=== PATIENT | male | born 1955 | race Hispanic/Latino ===

== ENCOUNTER 2019-06-27 19:02 | Emergency (ER) | payer BC, MEDICARE ==
[~2019-06-27] VITALS: Ht 172.7 cm; Wt 83.5 kg
[2019-06-27 19:35] LABS: BASOPHILS # (AUTO) 0.1 (0.0-0.1); BASOPHILS % 0.8 % (0.0-1.0); EOSINOPHILS # (AUTO) 0.4 (0.0-0.4); EOSINOPHILS % 3.3 % (0.0-6.0); HEMATOCRIT 39.5 % (38.2-49.6); HEMOGLOBIN 13.3 g/dL (14.0-18.0); LYMPHOCYTES # (AUTO) 3.4 (1.0-3.2); LYMPHOCYTES % 30.7 % (18.0-39.1); MEAN CORPUSCULAR HEMOGLOBIN 28.2 pg (28-32); MEAN CORPUSCULAR HGB CONC 33.7 g/dL (31-35); MEAN CORPUSCULAR VOLUME 83.9 fL (81-99); MONOCYTES # (AUTO) 0.9 (0.2-0.8); MONOCYTES % 8.4 % (4.4-11.3); NEUTROPHILS # (AUTO) 6.2 (2.1-6.9); NEUTROPHILS % 56.5 % (38.7-80.0); PLATELET COUNT 279 x10e3/uL (140-360); RED BLOOD COUNT 4.71 x10e6/uL (4.3-5.7); RED CELL DISTRIBUTION WIDTH 14.4 % (11.7-14.4)
[2019-06-27 19:46] LABS: BILIRUBIN,URINE NEGATIVE (NEGATIVE); CLARITY,URINE CLEAR (CLEAR); COLOR,URINE COLORLESS (YELLOW); KETONES,URINE NEGATIVE (NEGATIVE); LEUKOCYTE ESTERASE ,URINE NEGATIVE (NEGATIVE); NITRITE,URINE NEGATIVE (NEGATIVE); PROTEIN,URINE DIPSTICK NEGATIVE (NEGATIVE); URINE UROBILINOGEN 0.2 mg/dL (0.2 - 1)
[2019-06-27 19:47] LABS: BACTERIA,URINE FEW /HPF; EPITHELIAL CELLS,URINE FEW /LPF; RBC,URINE 0-5 /HPF (0-5); WBC,URINE (MAN) 0-5 /HPF (0-5)
[2019-06-27 19:56] LABS: ALANINE AMINOTRANSFERASE 19 IU/L (0-55); ALBUMIN 3.7 g/dL (3.5-5.0); ALKALINE PHOSPHATASE 69 IU/L (40-150); ANION GAP 15.9 mmol/L (8-16); BLOOD UREA NITROGEN 12 mg/dL (7-26); BUN/CREATININE RATIO 19 (6-25); CALCIUM 9.1 mg/dL (8.4-10.2); CARBON DIOXIDE 22 mmol/L (22-29); CHLORIDE 104 mmol/L (98-107); CREATININE, SERUM 0.64 mg/dL (0.72-1.25); EST GLOMERULAR FILTRATION RATE > 60 ML/MIN (60-); GLUCOSE 177 mg/dL (74-118); POTASSIUM 3.9 mmol/L (3.5-5.1); SODIUM 138 mmol/L (136-145)
--- NOTE | 2019-06-27 20:22 | Diagnostic Imaging Report ---
Examination: CT head without contrast Clinical Indication: Dizziness; blurred vision. Technique: Transaxial noncontrast images from the skull base through the vertex were obtained. Sagittal and coronal reformatted images were done. Dose modulation, iterative reconstruction, and/or weight based adjustment of the mA/kV was utilized to reduce the radiation dose to as low as reasonably achievable. Comparison: None. Findings: Scalp: No abnormalities. Bones: Intact. No fractures. No blastic or lytic lesions. Brain sulci: Appropriate for patient's age. Ventricles: Normal in size and configuration. No hydrocephalus. Extra-axial space: No abnormalities. Parenchyma: There are subtle patchy areas of hypoattenuation in the periventricular and subcortical white matter, nonspecific. No masses, hemorrhage, or acute or chronic cortical based vascular insults. Suprasellar region: No abnormalities. Craniocervical junction: The foramen magnum is patent. No Chiari one malformation. Incidental findings: Atherosclerotic calcification of the cavernous and supraclinoid internal carotid and V4 segments of the bilateral vertebral arteries. Impression: No acute intracranial abnormality. Mild chronic microvascular ischemic change. Signed by: Dr. Lexii Downey M.D. on 06/27/2019 8:19 PM
[2019-06-27 20:29] LABS: CREATINE KINASE 90 IU/L (30-200)
[2019-06-27] MEDS ORDERED: IOPAMIDOL 370 MG/ML 200 ML INFUS..BTL INJ ONE (20:57)
[2019-06-27] MEDS ORDERED: SODIUM CHLORIDE 0.9% 50ML 50 ML ONE (20:57)
[2019-06-27 23:17] VITALS: BP 118/75
--- NOTE | 2019-06-28 12:31 | Diagnostic Imaging Report ---
Examination: Cervical and Intracranial CT Angiogram with Contrast History: Dizziness. Blurred vision. Comparison studies: No direct comparison. Head CT performed earlier today. Technique: Axial images were obtained from the thoracic inlet. Coronal and sagittal images reconstructed from the axial data. Intravenous contrast: 100 mL of Isovue 370. Degree of stenosis at the carotid bulbs, if present, will be calculated using NASCET criteria where the smallest diameter at the location of stenosis is compared to the diameter of the more distal non-diseased vessel lumen. Computer generated maximum intensity projection and 3D images of the cervical and intracranial anterior and posterior circulations were performed on a separate workstation. Dose modulation, iterative reconstruction, and/or weight based adjustment of the mA/kV was utilized to reduce the radiation dose to as low as reasonably achievable. Findings: CTA neck: Aortic arch and major vessels: Patent. Common carotid arteries: Patent Cervical carotid bifurcations: Right: Nonstenotic calcific plaque. Left :Nonstenotic calcific plaque with focal ulcerative plaque along the posteromedial margin. Internal carotid arteries: Right: Calcific plaque with mild stenosis (35%) for a length of 5mm, and approximately 1.3cm from the bifurcation. Left: Nonstenotic mixed calcific and soft plaque. Vertebral arteries: Patent bilateral V1-V3 segments. Nonstenotic punctate calcific plaque at the origin of the left vertebral artery. CTA head: Internal carotid arteries: Patent despite calcific plaque Anterior cerebral arteries: Patent left A1 and bilateral A2 segments. Absent right A1. Middle cerebral arteries: Patent bilateral M1 and M2 segments. Posterior cerebral arteries: Patent bilateral P1 and P2 segments. Vertebro-basilar system: Patent. Anatomical variants: Anterior communicating artery :Present Posterior communicating arteries: Patent on the right. Not visualized on the left. Vertebral arteries: Codominant. IMPRESSION: 1. Mild stenosis (35%) of the proximal cervical segment of the right internal carotid artery due to calcific plaque. 2. Nonstenotic calcific and mixed plaque as described above. Signed by: Dr. Lexii Downey M.D. on 06/27/2019 11:00 PM
== END 2019-06-27 23:26 | disposition home or self-care (01) ==
LOC: FSED 19:02 → ER 23:26
DX: R42 Dizziness and giddiness (principal)
CPT/HCPCS: 36415; 70450; 70496; 70498; 80053; 81001; 82550; 82553; 82948; 84484; 85025; 93005; 99284; Q9967

== ENCOUNTER 2019-12-09 17:17 | Emergency (ER) | payer MEDICARE, BC ==
[~2019-12-09] VITALS: Ht 172.7 cm; Wt 83.5 kg
--- NOTE | 2019-12-09 17:22 | Emergency Department Note ---
History of Present Illnes History of Present Illness Chief Complaint: Neurological History of Present Illness This is a 64 year old male with persistant bluriness of vision 2 days prior. Seen at bedside NAD Arrival Mode: Car Onset (how long ago): day(s) Radiation: Reports non-radiation Severity: mild Onset quality: gradual Duration (how long): day(s) Progression: unchanged Chronicity: new Context: Denies recent illness, Denies recent surgery, Denies recent immobilization, Denies recent travel, Denies trauma/injury, Denies new medications, Denies hx of DVT/PE, Denies non-compliance w/ medications, Denies other Relieving factors: none Exacerbating factors: none Associated symptoms: Denies denies other symptoms, Denies confusion, Denies chest pain, Denies cough, Denies diaphoresis, Denies fever/chills, Denies headaches, Denies loss of appetite, Denies malaise, Denies nausea/vomiting, Denies rash, Denies seizure, Denies shortness of breath, Denies syncope, Denies weakness, Denies other Treatments prior to arrival: none Past Medical/Family History Physician Review I have reviewed the patient's past medical and family history. Any updates have been documented here. Past Medical History Recent Fever: No Clinical Suspicion of Infectio: No New/Unexplained Change in Ment: No Past Medical History: Hypertension, Diabetes, TIA, UTI's, GERD, Hyperlipedemia Past Surgical History: Back Surgery Other Surgery: NECK SX CHEST TUBE INSERTION Social History Smoking Cessation: Never Smoker Alcohol Use: None Any Illegal Drug Use: No Other Last Tetanus: UTD Review of Systems Review of Systems Constitutional: Reports no symptoms EENTM: Reports no symptoms Cardiovascular: Reports no symptoms Respiratory: Reports no symptoms Gastrointestinal: Reports no symptoms Genitourinary: Reports no symptoms Musculoskeletal: Reports no symptoms Integumentary: Reports no symptoms Neurological: Reports other Psychological: Reports no symptoms Endocrine: Reports no symptoms Hematological/Lymphatic: Reports no symptoms Physical Exam Related Data Allergies: Coded Allergies: No Known Allergies (Verified , 12/09/19) Triage Vital Signs Vital Signs Date Time Temp Pulse Resp B/P (MAP) Pulse Ox O2 Delivery O2 Flow Rate FiO2 12/09/19 17:25 98.2 96 18 165/91 98 Room Air Vital signs reviewed: Yes Physical Exam CONSTITUTIONAL Constitutional: Present obese HENT HENT: Present normocephalic, Present atraumatic, Present oropharynx clear/moist, Present nose normal HENT L/R: Present left ext ear normal, Present right ext ear normal EYES Eyes: Reports PERRL, Reports conjunctivae normal NECK Neck: Present ROM normal PULMONARY Pulmonary: Present effort normal, Present breath sounds normal CARDIOVASCULAR Cardiovascular: Present regular rhythm, Present heart sounds normal, Present capillary refill normal, Present normal rate GASTROINTESTINAL Abdominal: Present soft, Present nontender, Present bowel sounds normal GENITOURINARY Genitourinary: Present exam deferred SKIN Skin: Present warm, Present dry MUSCULOSKELETAL Musculoskeletal: Present ROM normal NEUROLOGICAL Neurological: Present alert, Present oriented x 3, Present no gross motor or sensory deficits PSYCHOLOGICAL Psychological: Present mood/affect normal, Present judgement normal Results Laboratory Lab results reviewed: Yes Imaging Imaging results reviewed: Yes Impressions [place] [id number] Patient Name: JAMIE JACKSON MR #: [id number] : 1955 Age/Sex: 64/M Req #: [id number] Adm Physician: Ordered by: NAHED PICKETT DO Report #: [id number] Location: ER Room/Bed: Procedure: [id number] CT/CTA BRAIN Exam Date: 12/09/19 Exam Time: 1845 REPORT STATUS: Signed EXAMINATION: CT angio of the neck and head with contrast. HISTORY:Blurred vision, possible TIA COMPARISON:CT brain and CTA head and neck from 06/27/2019. TECHNIQUE: Multidetector helical axial images were acquired through the neck and head during infusion of iodinated contrast material. Images were reviewed in multiplanar and 3-dimensional format. Axial CT head without contrast in soft tissue and bone windows. Dose modulation, iterative reconstruction, and/or weight based adjustment of the mA/kV was utilized to reduce the radiation dose to as low as reasonably achievable. Contrast: 100 mL of Isovue-370. . FINDINGS: CT head: Skull/scalp: No lytic or blastic. lesions. No surgical changes. Parenchyma: Nonspecific few, scattered supratentorial white matter hypodensity are likely related to small vessel ischemic changes. No acute hemorrhage, mass or acute major vascular territorial infarct. Arteries: No density suggestive of thrombosis. Dural sinuses: No abnormal density suggestive of thrombosis. Ventricles: No hydrocephalus or displacement. Extra-axial spaces: No abnormal density. Brain volume: Mild generalized cerebral volume loss. Craniocervical junction: No mass, Chiari malformation, or basilar invagination. Sella: No mass. Paranasal/mastoid sinuses: Under pneumatization and partial sclerosis of right mastoid air cells possibly related to chronic inflammation. CTA: NECK: If carotid bulb stenosis is present, stenosis is measured with respect to the distal extracranial internal carotid artery. Aortic arch and major vessels: Multifocal scattered nonstenotic atherosclerotic calcification in the aortic arch and at the origin of the great vessels. Common carotid arteries: Multifocal hard and soft atherosclerotic plaque in right common carotid artery without significant vascular stenosis. Cervical carotid bifurcations: Right: Mild to moderate mixed atherosclerotic plaque in right carotid bulb without significant vascular stenosis. Left :Moderate mixed atherosclerotic plaque in left carotid bulb with unchanged focal ulcerative plaque along the posterior medial margin. Internal carotid arteries: Right: Hard atherosclerotic plaque in proximal cervical segment of right internal carotid artery just above the bifurcation results in approximately 25% vascular stenosis. Left: Hard atherosclerotic plaque in proximal cervical segment of left internal carotid artery just above the bifurcation without significant vascular stenosis. Vertebral arteries: Nonstenotic focal hard atherosclerotic plaque in V2 segment of right vertebral artery without significant vascular stenosis, at level C6. Nonstenotic focal hard atherosclerotic plaque at the origin of left vertebral artery. Incidental finding: Multiple missing teeth, multifocal dental caries and endodontal disease. Cervical spine: C5-C6: Mild degenerative disc disease. Moderate right foraminal stenosis due to facet and uncovertebral arthrosis. C6-C7: Mild bilateral foraminal stenosis due to facet and uncovertebral arthrosis. Expected postoperative changes from prior laminectomy that extends from level C4-C6. Nonspecific prominent bilateral lateral cervical lymph nodes. HEAD: Internal carotid arteries: Mild atherosclerotic plaque in bilateral carotid siphon. Hypoplastic right A1 segment, left A1 segment is patent without abnormality. A2 segments of the anterior cerebral artery is patent without abnormality. Bilateral middle cerebral arteries are patent without abnormality. 2 mm triangular projection that arises from the anterior communicating artery that projects inferiorly (image 88, series 511) may represent small focal aneurysm or infundibulum. Vertebral arteries: Patent. Basilar artery: Patent. Posterior cerebral arteries: Patent. origin of right posterior cerebral artery. Anatomical variants: Anterior communicating artery :Present Posterior communicating arteries: Patent on right, not visualized on left. Vertebral arteries: Codominant. IMPRESSION: CT head: No acute intracranial abnormality. Mild supratentorial white matter microvascular ischemic changes. Mild generalized cerebral volume loss. CTA head and neck: 1. No acute abnormality or significant change since CT of the head and neck from 06/27/2019. 2. Multifocal atherosclerotic plaque without significant vascular stenosis, particularly in the aortic arch, right common carotid artery, bilateral carotid bulb, cervical segment of bilateral internal carotid arteries, vertebral arteries and bilateral carotid siphon. 3. Unchanged ulcerative plaque in the posterior medial aspect of cervical segment of left internal carotid artery. 4. Persistent 2 mm infundibulum vs small focal aneurysm arising from the anterior communicating artery. Signed by: Dr. Charo Jiang M.D. on 12/09/2019 8:15 PM Dictated By: CHARO JIANG MD 14 Transcribed By: TAYLOR on 12/09/192014 COPY TO: NAHED PICKETT DO~ Procedures 12 Lead ECG Interpretation ECG Interpretation : ECG: ECG 1 Court Recorder: Interpreted by ED physician Date: Dec 09, 2019 Time: 17:24 Prior ECG tracings: reviewed Rhythm: sinus rhythm Rate: normal BPM: 77 QRS axis: normal ST segments normal: Yes T waves normal: Yes Clinical Impression: normal ECG Assessment & Plan Medical Decision Making MDM 64 yom presents with neuro symptoms . Diff Dx : status epilepticus, brain tumor, CVA, SAH, EDH, traumatic brain injury , hydrocephalus, meningitis, encephalitis, COVID-19 infection Assessment & Plan Final Impression: (1) Visual blurriness Depart Disposition: HOME, SELF-CARE NAHED PICKETT DO Dec 09, 2019 17:22
[2019-12-09 17:44] LABS: BASOPHILS # (AUTO) 0.1 (0.0-0.1); BASOPHILS % 0.6 % (0.0-1.0); EOSINOPHILS # (AUTO) 0.3 (0.0-0.4); EOSINOPHILS % 2.3 % (0.0-6.0); HEMATOCRIT 39.9 % (38.2-49.6); HEMOGLOBIN 13.4 g/dL (14.0-18.0); LYMPHOCYTES # (AUTO) 4.4 (1.0-3.2); LYMPHOCYTES % 38.2 % (18.0-39.1); MEAN CORPUSCULAR HEMOGLOBIN 27.3 pg (28-32); MEAN CORPUSCULAR HGB CONC 33.6 g/dL (31-35); MEAN CORPUSCULAR VOLUME 81.3 fL (81-99); MONOCYTES # (AUTO) 1.2 (0.2-0.8); MONOCYTES % 10.4 % (4.4-11.3); NEUTROPHILS # (AUTO) 5.6 (2.1-6.9); NEUTROPHILS % 48.2 % (38.7-80.0); PLATELET COUNT 285 x10e3/uL (140-360); RED BLOOD COUNT 4.91 x10e6/uL (4.3-5.7); RED CELL DISTRIBUTION WIDTH 13.5 % (11.7-14.4)
[2019-12-09 18:01] LABS: ALANINE AMINOTRANSFERASE 29 IU/L (0-55); ALBUMIN 3.7 g/dL (3.5-5.0); ALBUMIN/GLOBULIN RATIO 0.8 (0.8-2.0); ALKALINE PHOSPHATASE 71 IU/L (40-150); ANION GAP 15.2 mmol/L (8-16); BLOOD UREA NITROGEN 14 mg/dL (7-26); BUN/CREATININE RATIO 21 (6-25); CALCIUM 9.4 mg/dL (8.4-10.2); CARBON DIOXIDE 20 mmol/L (22-29); CHLORIDE 102 mmol/L (98-107); CREATININE, SERUM 0.67 mg/dL (0.72-1.25); EST GLOMERULAR FILTRATION RATE > 60 ML/MIN (60-); GLUCOSE 176 mg/dL (74-118); POTASSIUM 4.2 mmol/L (3.5-5.1); SODIUM 133 mmol/L (136-145)
--- NOTE | 2019-12-09 20:18 | Diagnostic Imaging Report ---
EXAMINATION: CT angio of the neck and head with contrast. HISTORY:Blurred vision, possible TIA COMPARISON:CT brain and CTA head and neck from 06/27/2019. TECHNIQUE: Multidetector helical axial images were acquired through the neck and head during infusion of iodinated contrast material. Images were reviewed in multiplanar and 3-dimensional format. Axial CT head without contrast in soft tissue and bone windows. Dose modulation, iterative reconstruction, and/or weight based adjustment of the mA/kV was utilized to reduce the radiation dose to as low as reasonably achievable. Contrast: 100 mL of Isovue-370. . FINDINGS: CT head: Skull/scalp: No lytic or blastic. lesions. No surgical changes. Parenchyma: Nonspecific few, scattered supratentorial white matter hypodensity are likely related to small vessel ischemic changes. No acute hemorrhage, mass or acute major vascular territorial infarct. Arteries: No density suggestive of thrombosis. Dural sinuses: No abnormal density suggestive of thrombosis. Ventricles: No hydrocephalus or displacement. Extra-axial spaces: No abnormal density. Brain volume: Mild generalized cerebral volume loss. Craniocervical junction: No mass, Chiari malformation, or basilar invagination. Sella: No mass. Paranasal/mastoid sinuses: Under pneumatization and partial sclerosis of right mastoid air cells possibly related to chronic inflammation. CTA: NECK: If carotid bulb stenosis is present, stenosis is measured with respect to the distal extracranial internal carotid artery. Aortic arch and major vessels: Multifocal scattered nonstenotic atherosclerotic calcification in the aortic arch and at the origin of the great vessels. Common carotid arteries: Multifocal hard and soft atherosclerotic plaque in right common carotid artery without significant vascular stenosis. Cervical carotid bifurcations: Right: Mild to moderate mixed atherosclerotic plaque in right carotid bulb without significant vascular stenosis. Left :Moderate mixed atherosclerotic plaque in left carotid bulb with unchanged focal ulcerative plaque along the posterior medial margin. Internal carotid arteries: Right: Hard atherosclerotic plaque in proximal cervical segment of right internal carotid artery just above the bifurcation results in approximately 25% vascular stenosis. Left: Hard atherosclerotic plaque in proximal cervical segment of left internal carotid artery just above the bifurcation without significant vascular stenosis. Vertebral arteries: Nonstenotic focal hard atherosclerotic plaque in V2 segment of right vertebral artery without significant vascular stenosis, at level C6. Nonstenotic focal hard atherosclerotic plaque at the origin of left vertebral artery. Incidental finding: Multiple missing teeth, multifocal dental caries and endodontal disease. Cervical spine: C5-C6: Mild degenerative disc disease. Moderate right foraminal stenosis due to facet and uncovertebral arthrosis. C6-C7: Mild bilateral foraminal stenosis due to facet and uncovertebral arthrosis. Expected postoperative changes from prior laminectomy that extends from level C4-C6. Nonspecific prominent bilateral lateral cervical lymph nodes. HEAD: Internal carotid arteries: Mild atherosclerotic plaque in bilateral carotid siphon. Hypoplastic right A1 segment, left A1 segment is patent without abnormality. A2 segments of the anterior cerebral artery is patent without abnormality. Bilateral middle cerebral arteries are patent without abnormality. 2 mm triangular projection that arises from the anterior communicating artery that projects inferiorly (image 88, series 511) may represent small focal aneurysm or infundibulum. Vertebral arteries: Patent. Basilar artery: Patent. Posterior cerebral arteries: Patent. origin of right posterior cerebral artery. Anatomical variants: Anterior communicating artery :Present Posterior communicating arteries: Patent on right, not visualized on left. Vertebral arteries: Codominant. IMPRESSION: CT head: No acute intracranial abnormality. Mild supratentorial white matter microvascular ischemic changes. Mild generalized cerebral volume loss. CTA head and neck: 1. No acute abnormality or significant change since CT of the head and neck from 06/27/2019. 2. Multifocal atherosclerotic plaque without significant vascular stenosis, particularly in the aortic arch, right common carotid artery, bilateral carotid bulb, cervical segment of bilateral internal carotid arteries, vertebral arteries and bilateral carotid siphon. 3. Unchanged ulcerative plaque in the posterior medial aspect of cervical segment of left internal carotid artery. 4. Persistent 2 mm infundibulum vs small focal aneurysm arising from the anterior communicating artery. Signed by: Dr. Charo Oneil M.D. on 12/09/2019 8:15 PM
[2019-12-09] MEDS ORDERED: ASPIRIN 325 MG TAB PO STA (20:27)
[2019-12-10] MEDS ORDERED: IOPAMIDOL 370 MG/ML 200 ML INFUS..BTL INJ ONE (04:15)
[2019-12-10] MEDS ORDERED: SODIUM CHLORIDE 0.9% 100 ML ONE (04:15)
== END 2019-12-09 20:58 | disposition home or self-care (01) ==
LOC: ER 17:29
DX: H53.8 Other visual disturbances (principal); I10 Essential (primary) hypertension; E11.9 Type 2 diabetes mellitus without complications; E78.5 Hyperlipidemia, unspecified; K21.9 Gastro-esophageal reflux disease without esophagitis; Z86.73 Personal history of transient ischemic attack (TIA), and cerebral infarction without residual deficits
CPT/HCPCS: 36415; 70496; 70498; 80053; 85025; 93005; 99284; J7050; Q9967

== ENCOUNTER 2020-06-01 15:07 | Emergency (ER) | payer MEDICARE, BC ==
[~2020-06-01] VITALS: Ht 175.3 cm; Wt 86.2 kg
[2020-06-01 15:52] LABS: CLARITY,URINE SL CLOUDY (CLEAR); COLOR,URINE AMBER (YELLOW); KETONES,URINE 1+ (NEGATIVE); LEUKOCYTE ESTERASE ,URINE NEGATIVE (NEGATIVE); NITRITE,URINE NEGATIVE (NEGATIVE); PROTEIN,URINE DIPSTICK >=300 (NEGATIVE); URINE UROBILINOGEN 1 mg/dL (0.2 - 1)
[2020-06-01 16:04] LABS: BACTERIA,URINE MANY /HPF; RBC,URINE 0-5 /HPF (0-5)
[2020-06-01 16:33] LABS: BASOPHILS # (AUTO) 0.1 (0.0-0.1); BASOPHILS % 0.3 % (0.0-1.0); EOSINOPHILS # (AUTO) 0.1 (0.0-0.4); EOSINOPHILS % 0.4 % (0.0-6.0); HEMOGLOBIN 11.3 g/dL (14.0-18.0); LYMPHOCYTES # (AUTO) 2.7 (1.0-3.2); LYMPHOCYTES % 10.4 % (18.0-39.1); MEAN CORPUSCULAR HEMOGLOBIN 26.7 pg (28-32); MEAN CORPUSCULAR HGB CONC 33.2 g/dL (31-35); MEAN CORPUSCULAR VOLUME 80.4 fL (81-99); MONOCYTES # (AUTO) 2.6 (0.2-0.8); NEUTROPHILS % 77.5 % (38.7-80.0); PLATELET COUNT 214 x10e3/uL (140-360); RED BLOOD COUNT 4.23 x10e6/uL (4.3-5.7); RED CELL DISTRIBUTION WIDTH 14.3 % (11.7-14.4)
[2020-06-01 16:50] LABS: ALANINE AMINOTRANSFERASE 17 IU/L (0-55); ALBUMIN 2.8 g/dL (3.5-5.0); ALBUMIN/GLOBULIN RATIO 0.6 (0.8-2.0); ALKALINE PHOSPHATASE 74 IU/L (40-150); BLOOD UREA NITROGEN 16 mg/dL (7-26); BUN/CREATININE RATIO 21 (6-25); CALCIUM 8.4 mg/dL (8.4-10.2); CARBON DIOXIDE 22 mmol/L (22-29); CHLORIDE 100 mmol/L (98-107); CREATINE KINASE 40 IU/L (30-200); CREATININE, SERUM 0.78 mg/dL (0.72-1.25); EST GLOMERULAR FILTRATION RATE > 60 ML/MIN (60-); GLUCOSE 219 mg/dL (74-118); SODIUM 130 mmol/L (136-145)
[2020-06-02] MEDS ORDERED: CEFDINIR300 MG PO (18:59)
== END 2020-06-01 17:26 | disposition home or self-care (01) ==
LOC: ER 15:32
DX: R31.9 Hematuria, unspecified (principal); R30.0 Dysuria; E11.65 Type 2 diabetes mellitus with hyperglycemia; I10 Essential (primary) hypertension; M06.9 Rheumatoid arthritis, unspecified; E78.5 Hyperlipidemia, unspecified; E03.9 Hypothyroidism, unspecified; K21.9 Gastro-esophageal reflux disease without esophagitis; Z11.52 Encounter for screening for COVID-19; Z86.73 Personal history of transient ischemic attack (TIA), and cerebral infarction without residual deficits
CPT/HCPCS: 36415; 74176; 80053; 81001; 82550; 82553; 84484; 85025; 99284; U0002

== ENCOUNTER 2020-06-02 15:53 | Emergency (ER) | payer MEDICARE, BC ==
[~2020-06-02] VITALS: Ht 175.3 cm; Wt 86.2 kg
[2020-06-02] MEDS ORDERED: SODIUM CHLORIDE 0.9% 1000ML 1,000 ML IV STA (16:16)
[2020-06-02] MEDS ORDERED: CEFTRIAXONE SOD 1 GM/NS 50 ML 50 ML IV ONE (16:30)
[2020-06-02] MEDS ORDERED: MORPHINE SULFATE INJ 4 MG/ML INJ 1ML IV PRN (16:30)
[2020-06-02 16:34] LABS: BASOPHILS # (AUTO) 0.1 (0.0-0.1); BASOPHILS % 0.3 % (0.0-1.0); EOSINOPHILS # (AUTO) 0.2 (0.0-0.4); EOSINOPHILS % 0.8 % (0.0-6.0); HEMATOCRIT 35.2 % (38.2-49.6); HEMOGLOBIN 11.7 g/dL (14.0-18.0); LYMPHOCYTES # (AUTO) 3.7 (1.0-3.2); LYMPHOCYTES % 17.9 % (18.0-39.1); MEAN CORPUSCULAR HEMOGLOBIN 26.8 pg (28-32); MEAN CORPUSCULAR HGB CONC 33.2 g/dL (31-35); MEAN CORPUSCULAR VOLUME 80.5 fL (81-99); MONOCYTES # (AUTO) 2.3 (0.2-0.8); MONOCYTES % 11.3 % (4.4-11.3); NEUTROPHILS # (AUTO) 14.1 (2.1-6.9); NEUTROPHILS % 68.8 % (38.7-80.0); PLATELET COUNT 212 x10e3/uL (140-360); RED BLOOD COUNT 4.37 x10e6/uL (4.3-5.7)
[2020-06-02 16:56] LABS: ALANINE AMINOTRANSFERASE 21 IU/L (0-55); ALBUMIN 2.7 g/dL (3.5-5.0); ALBUMIN/GLOBULIN RATIO 0.6 (0.8-2.0); ALKALINE PHOSPHATASE 86 IU/L (40-150); ANION GAP 12.8 mmol/L (8-16); BLOOD UREA NITROGEN 17 mg/dL (7-26); BUN/CREATININE RATIO 19 (6-25); CALCIUM 8.5 mg/dL (8.4-10.2); CARBON DIOXIDE 21 mmol/L (22-29); CHLORIDE 100 mmol/L (98-107); CREATININE, SERUM 0.89 mg/dL (0.72-1.25); EST GLOMERULAR FILTRATION RATE > 60 ML/MIN (60-); GLUCOSE 266 mg/dL (74-118); POTASSIUM 3.8 mmol/L (3.5-5.1); SODIUM 130 mmol/L (136-145)
[2020-06-02 17:52] LABS: CLARITY,URINE SL CLOUDY (CLEAR); COLOR,URINE YELLOW (YELLOW)
[2020-06-02 17:53] LABS: KETONES,URINE NEGATIVE (NEGATIVE); LEUKOCYTE ESTERASE ,URINE NEGATIVE (NEGATIVE); NITRITE,URINE NEGATIVE (NEGATIVE); PROTEIN,URINE DIPSTICK 1+ (NEGATIVE); URINE UROBILINOGEN 0.2 mg/dL (0.2 - 1)
[2020-06-02 18:05] LABS: BACTERIA,URINE MODERATE /HPF; RBC,URINE 0-5 /HPF (0-5)
[2020-06-02] MEDS ORDERED: CEFDINIR300 MG PO (18:59)
[2020-06-02 19:17] VITALS: BP 130/75
== END 2020-06-02 20:13 | disposition home or self-care (01) ==
LOC: ER 16:01
DX: N39.0 Urinary tract infection, site not specified (principal); R31.9 Hematuria, unspecified; R30.0 Dysuria; D72.829 Elevated white blood cell count, unspecified; E11.65 Type 2 diabetes mellitus with hyperglycemia; I10 Essential (primary) hypertension; E78.5 Hyperlipidemia, unspecified; K21.9 Gastro-esophageal reflux disease without esophagitis; M06.9 Rheumatoid arthritis, unspecified; Z86.73 Personal history of transient ischemic attack (TIA), and cerebral infarction without residual deficits
CPT/HCPCS: 36415; 80053; 81001; 83605; 85025; 87040; 87086; 99283; J0696; J2270; J7030

== ENCOUNTER 2020-06-21 12:09 | Emergency (ER) | payer MEDICARE, BC ==
[~2020-06-21] VITALS: Ht 175.3 cm; Wt 86.2 kg
[~2020-06-21 12:09] MED LIST: CEFDINIR300 MG PO
[2020-06-21] MEDS ORDERED: SODIUM CHLORIDE 0.9% 1000ML 1,000 ML IV SCH (13:45)
[2020-06-21] MEDS ORDERED: ASPIRIN 81 MG CHEW TAB PO ONE (13:45)
[2020-06-21] MEDS ORDERED: HYDROXYZINE HCL 25 MG TAB PO ONE (14:00)
[2020-06-21 14:06] LABS: BASOPHILS # (AUTO) 0.1 (0.0-0.1); EOSINOPHILS # (AUTO) 0.3 (0.0-0.4); EOSINOPHILS % 3.7 % (0.0-6.0); HEMATOCRIT 36.8 % (38.2-49.6); LYMPHOCYTES # (AUTO) 2.5 (1.0-3.2); LYMPHOCYTES % 31.5 % (18.0-39.1); MEAN CORPUSCULAR HGB CONC 32.6 g/dL (31-35); MEAN CORPUSCULAR VOLUME 82.7 fL (81-99); MONOCYTES # (AUTO) 0.9 (0.2-0.8); MONOCYTES % 11.2 % (4.4-11.3); NEUTROPHILS # (AUTO) 4.1 (2.1-6.9); NEUTROPHILS % 52.3 % (38.7-80.0); PLATELET COUNT 396 x10e3/uL (140-360); RED BLOOD COUNT 4.45 x10e6/uL (4.3-5.7); RED CELL DISTRIBUTION WIDTH 14.4 % (11.7-14.4)
[2020-06-21 14:31] LABS: ALANINE AMINOTRANSFERASE 17 IU/L (0-55); ALBUMIN 3.4 g/dL (3.5-5.0); ALBUMIN/GLOBULIN RATIO 0.8 (0.8-2.0); ALKALINE PHOSPHATASE 68 IU/L (40-150); ANION GAP 13.9 mmol/L (8-16); BLOOD UREA NITROGEN 10 mg/dL (7-26); BUN/CREATININE RATIO 14 (6-25); CARBON DIOXIDE 24 mmol/L (22-29); CHLORIDE 104 mmol/L (98-107); CREATINE KINASE 90 IU/L (30-200); CREATININE, SERUM 0.73 mg/dL (0.72-1.25); EST GLOMERULAR FILTRATION RATE > 60 ML/MIN (60-); GLUCOSE 188 mg/dL (74-118); POTASSIUM 3.9 mmol/L (3.5-5.1); SODIUM 138 mmol/L (136-145)
[2020-06-21 16:05] VITALS: BP 122/70
== END 2020-06-21 16:06 | disposition home or self-care (01) ==
LOC: ER 12:52
DX: R42 Dizziness and giddiness (principal); H60.91 Unspecified otitis externa, right ear; H66.91 Otitis media, unspecified, right ear; I10 Essential (primary) hypertension; E11.65 Type 2 diabetes mellitus with hyperglycemia; E78.5 Hyperlipidemia, unspecified; K21.9 Gastro-esophageal reflux disease without esophagitis; M06.9 Rheumatoid arthritis, unspecified; E03.9 Hypothyroidism, unspecified; Z86.73 Personal history of transient ischemic attack (TIA), and cerebral infarction without residual deficits
CPT/HCPCS: 36415; 70450; 80053; 82550; 82553; 84484; 85025; 93005; 99284; J3410; J7030

== ENCOUNTER 2020-08-29 12:33 | Emergency (ER) | payer MEDICARE, BC ==
[~2020-08-29] VITALS: Ht 175.3 cm; Wt 86.2 kg
[2020-08-29 13:47] LABS: CLARITY,URINE CLEAR (CLEAR); COLOR,URINE YELLOW (YELLOW); KETONES,URINE NEGATIVE (NEGATIVE); LEUKOCYTE ESTERASE ,URINE NEGATIVE (NEGATIVE); NITRITE,URINE NEGATIVE (NEGATIVE); PROTEIN,URINE DIPSTICK 1+ (NEGATIVE); URINE UROBILINOGEN 1 mg/dL (0.2 - 1)
[2020-08-29 13:58] LABS: WBC,URINE (MAN) 0-5 /HPF (0-5)
[2020-08-29 13:59] LABS: BACTERIA,URINE FEW /HPF
[2020-08-30] MEDS ORDERED: CEFDINIR300 MG PO (09:56)
[2020-08-30] MEDS ORDERED: DOXYCYCLINE HY100 MG PO (09:56)
== END 2020-08-29 15:44 | disposition home or self-care (01) ==
LOC: ER 14:09
DX: R50.9 Fever, unspecified (principal); R31.9 Hematuria, unspecified; I10 Essential (primary) hypertension; E11.9 Type 2 diabetes mellitus without complications; E78.5 Hyperlipidemia, unspecified; K21.9 Gastro-esophageal reflux disease without esophagitis; M06.9 Rheumatoid arthritis, unspecified; E03.9 Hypothyroidism, unspecified
CPT/HCPCS: 81001; 99282

== ENCOUNTER 2020-08-30 08:02 | Emergency (ER) | payer MEDICARE, BC ==
[~2020-08-30] VITALS: Ht 175.3 cm; Wt 86.2 kg
[2020-08-30 08:31] LABS: BASOPHILS # (AUTO) 0.1 (0.0-0.1); BASOPHILS % 0.5 % (0.0-1.0); EOSINOPHILS # (AUTO) 0.1 (0.0-0.4); EOSINOPHILS % 0.5 % (0.0-6.0); HEMATOCRIT 36.5 % (38.2-49.6); HEMOGLOBIN 12.1 g/dL (14.0-18.0); LYMPHOCYTES # (AUTO) 0.7 (1.0-3.2); LYMPHOCYTES % 7.1 % (18.0-39.1); MEAN CORPUSCULAR HEMOGLOBIN 26.8 pg (28-32); MEAN CORPUSCULAR HGB CONC 33.2 g/dL (31-35); MEAN CORPUSCULAR VOLUME 80.8 fL (81-99); MONOCYTES # (AUTO) 0.7 (0.2-0.8); MONOCYTES % 7.1 % (4.4-11.3); NEUTROPHILS # (AUTO) 8.7 (2.1-6.9); NEUTROPHILS % 84.4 % (38.7-80.0); PLATELET COUNT 228 x10e3/uL (140-360); RED BLOOD COUNT 4.52 x10e6/uL (4.3-5.7)
[2020-08-30 08:56] LABS: COLOR,URINE YELLOW (YELLOW)
[2020-08-30 08:57] LABS: CLARITY,URINE SL CLOUDY (CLEAR); KETONES,URINE TRACE (NEGATIVE); LEUKOCYTE ESTERASE ,URINE NEGATIVE (NEGATIVE); NITRITE,URINE NEGATIVE (NEGATIVE); PROTEIN,URINE DIPSTICK 2+ (NEGATIVE); URINE UROBILINOGEN 1 mg/dL (0.2 - 1)
[2020-08-30 08:58] LABS: ALANINE AMINOTRANSFERASE 43 IU/L (0-55); ALBUMIN 3.3 g/dL (3.5-5.0); ALBUMIN/GLOBULIN RATIO 0.8 (0.8-2.0); ALKALINE PHOSPHATASE 63 IU/L (40-150); ANION GAP 13.9 mmol/L (8-16); BACTERIA,URINE MODERATE /HPF; BLOOD UREA NITROGEN 19 mg/dL (7-26); BUN/CREATININE RATIO 21 (6-25); CALCIUM 8.2 mg/dL (8.4-10.2); CARBON DIOXIDE 20 mmol/L (22-29); CHLORIDE 99 mmol/L (98-107); CREATININE, SERUM 0.92 mg/dL (0.72-1.25); EPITHELIAL CELLS,URINE MODERATE /LPF; EST GLOMERULAR FILTRATION RATE > 60 ML/MIN (60-); GLUCOSE 116 mg/dL (74-118); POTASSIUM 4.9 mmol/L (3.5-5.1); SODIUM 128 mmol/L (136-145)
[2020-08-30] MEDS ORDERED: CEFTRIAXONE SOD 1 GM/50 ML BAG IV ONE (09:15)
[2020-08-30] MEDS ORDERED: CEFTRIAXONE SOD 1 GM in SODIUM CHLORIDE 0.9% 50ML 50 ML IV ONE (09:30)
[2020-08-30] MEDS ORDERED: SODIUM CHLORIDE 0.9% 1000ML 1,000 ML IV SCH (09:45)
[2020-08-30] MEDS ORDERED: DOXYCYCLINE HY100 MG PO (09:56)
[2020-08-30] MEDS ORDERED: CEFDINIR300 MG PO (09:56)
[2020-08-30 10:56] VITALS: BP 130/84
== END 2020-08-30 10:57 | disposition home or self-care (01) ==
LOC: ER 08:32
DX: R50.9 Fever, unspecified (principal); R31.9 Hematuria, unspecified; N39.0 Urinary tract infection, site not specified; R51.9 Headache, unspecified; R11.0 Nausea; I10 Essential (primary) hypertension; E11.9 Type 2 diabetes mellitus without complications; E78.5 Hyperlipidemia, unspecified; K21.9 Gastro-esophageal reflux disease without esophagitis; M06.9 Rheumatoid arthritis, unspecified; Z20.822 Contact with and (suspected) exposure to COVID-19; Z86.73 Personal history of transient ischemic attack (TIA), and cerebral infarction without residual deficits
CPT/HCPCS: 36415; 71045; 74176; 80053; 81001; 83605; 85025; 87040; 87086; 99283; J0696; J7030; U0002

== ENCOUNTER 2021-09-08 18:52 | Inpatient (IN) | payer MEDICARE, BC ==
[~2021-09-08] VITALS: Ht 175.3 cm; Wt 86.2 kg
[~2021-09-08 18:52] MED LIST changes: +DOXYCYCLINE HY100 MG PO
[2021-09-08] MEDS ORDERED: ASPIRIN 81 MG CHEW TAB PO ONE (19:15)
[2021-09-08] MEDS ORDERED: ACETAMINOPHEN 325 MG TAB PO ONE (19:15)
[2021-09-08 19:25] LABS: BASOPHILS # (AUTO) 0.1 (0.0-0.1); BASOPHILS % 0.6 % (0.0-1.0); EOSINOPHILS # (AUTO) 0.3 (0.0-0.4); EOSINOPHILS % 2.4 % (0.0-6.0); HEMATOCRIT 38.7 % (38.2-49.6); HEMOGLOBIN 12.6 g/dL (14.0-18.0); LYMPHOCYTES # (AUTO) 2.3 (1.0-3.2); LYMPHOCYTES % 17.5 % (18.0-39.1); MEAN CORPUSCULAR HEMOGLOBIN 27.4 pg (28-32); MEAN CORPUSCULAR HGB CONC 32.6 g/dL (31-35); MEAN CORPUSCULAR VOLUME 84.1 fL (81-99); MONOCYTES # (AUTO) 1.3 (0.2-0.8); MONOCYTES % 9.6 % (4.4-11.3); NEUTROPHILS # (AUTO) 9.3 (2.1-6.9); NEUTROPHILS % 69.5 % (38.7-80.0); PLATELET COUNT 286 x10e3/uL (140-360); RED CELL DISTRIBUTION WIDTH 14.4 % (11.7-14.4)
[2021-09-08 19:39] LABS: CLARITY,URINE CLEAR (CLEAR); COLOR,URINE YELLOW (YELLOW)
[2021-09-08 19:40] LABS: KETONES,URINE NEGATIVE (NEGATIVE); LEUKOCYTE ESTERASE ,URINE NEGATIVE (NEGATIVE); NITRITE,URINE NEGATIVE (NEGATIVE); PROTEIN,URINE DIPSTICK NEGATIVE (NEGATIVE); URINE UROBILINOGEN 0.2 mg/dL (0.2 - 1)
[2021-09-08] MEDS ORDERED: SODIUM CHLORIDE 0.9% 1000ML 1,000 ML IV STA ×2 (19:42→20:54)
[2021-09-08 19:43] LABS: ALANINE AMINOTRANSFERASE 13 IU/L (0-55); ALBUMIN 3.7 g/dL (3.5-5.0); ALBUMIN/GLOBULIN RATIO 0.8 (0.8-2.0); ALKALINE PHOSPHATASE 67 IU/L (40-150); ANION GAP 16.3 mmol/L (8-16); BLOOD UREA NITROGEN 20 mg/dL (7-26); BUN/CREATININE RATIO 21 (6-25); CALCIUM 8.6 mg/dL (8.4-10.2); CARBON DIOXIDE 20 mmol/L (22-29); CHLORIDE 104 mmol/L (98-107); CREATINE KINASE 125 IU/L (30-200); CREATININE, SERUM 0.94 mg/dL (0.72-1.25); EST GLOMERULAR FILTRATION RATE 80 ML/MIN (60-); GLUCOSE 140 mg/dL (74-118); POTASSIUM 4.3 mmol/L (3.5-5.1); SODIUM 136 mmol/L (136-145)
[2021-09-08 19:44] LABS: BACTERIA,URINE RARE /HPF; EPITHELIAL CELLS,URINE MODERATE /LPF; RBC,URINE 0-5 /HPF (0-5); WBC,URINE (MAN) 0-5 /HPF (0-5)
[2021-09-08 19:58] LABS: B-TYPE NATRIURETIC PEPTIDE2 10.1 pg/mL (0-100)
[2021-09-08] MEDS ORDERED: KETOROLAC TROMETHAMINE 30 MG/ML VIAL IV STA (20:32)
[2021-09-08] MEDS ORDERED: KETOROLAC TROMETHAMINE 30 MG/ML VIAL ONE (20:46)
[2021-09-08] MEDS ORDERED: IOPAMIDOL 370 MG/ML 100 ML INFUS..BTL INJ ONE (22:10)
[2021-09-08] MEDS ORDERED: SODIUM CHLORIDE 0.9% 1000ML 1,000 ML IV ONE (22:45)
[2021-09-08] MEDS ORDERED: SODIUM CHLORIDE 0.9% 1000ML 1,000 ML ONE (22:46)
[2021-09-08] MEDS ORDERED: Morphine 4mg Syringe 4 MG/ML INJ IV PRN (23:00)
[2021-09-08] MEDS ORDERED: ONDANSETRON HCL INJ 2MG/ML 2ML 2 MG/ML VIAL IV PRN (23:00)
[2021-09-09] VITALS (9 sets, daily range): BP systolic 114–146; BP diastolic 57–89
[2021-09-09] MEDS: SODIUM CHLORIDE 0.9% 1000ML 1,000 ML IV SCH ×4 (00:54→20:55)
[2021-09-09] MEDS ORDERED: HYDRALAZINE HCL 20 MG/ML VIAL IV PRN (03:30)
[2021-09-09 06:06] LABS: BASOPHILS # (AUTO) 0.1 (0.0-0.1); BASOPHILS % 0.5 % (0.0-1.0); EOSINOPHILS # (AUTO) 0.2 (0.0-0.4); EOSINOPHILS % 1.2 % (0.0-6.0); HEMATOCRIT 36.2 % (38.2-49.6); HEMOGLOBIN 11.5 g/dL (14.0-18.0); LYMPHOCYTES % 15.2 % (18.0-39.1); MEAN CORPUSCULAR HEMOGLOBIN 26.6 pg (28-32); MEAN CORPUSCULAR HGB CONC 31.8 g/dL (31-35); MEAN CORPUSCULAR VOLUME 83.8 fL (81-99); MONOCYTES # (AUTO) 1.3 (0.2-0.8); MONOCYTES % 10.3 % (4.4-11.3); NEUTROPHILS # (AUTO) 9.4 (2.1-6.9); NEUTROPHILS % 72.5 % (38.7-80.0); PLATELET COUNT 246 x10e3/uL (140-360); RED BLOOD COUNT 4.32 x10e6/uL (4.3-5.7); RED CELL DISTRIBUTION WIDTH 14.3 % (11.7-14.4)
[2021-09-09 06:38] LABS: ALBUMIN 3.2 g/dL (3.5-5.0); ALBUMIN/GLOBULIN RATIO 0.8 (0.8-2.0); ANION GAP 11.9 mmol/L (8-16); CALCIUM 7.6 mg/dL (8.4-10.2); CREATININE, SERUM 0.71 mg/dL (0.72-1.25); POTASSIUM 3.9 mmol/L (3.5-5.1)
[2021-09-09 06:53] LABS: CREATINE KINASE 149 IU/L (30-200)
[2021-09-09] MEDS: ACETAMINOPHEN 325 MG TAB PO PRN (07:25)
[2021-09-09] MEDS ORDERED: BISACODYL 5 MG TAB EC PO PRN (12:15)
[2021-09-09] MEDS ORDERED: DEXTROSE 50% SYRINGE 50 ML IV PRN (12:15)
[2021-09-09] MEDS ORDERED: GLIPIZIDE ER5 MG PO (12:34)
[2021-09-09] MEDS ORDERED: ZETIA10 MG PO (12:36)
[2021-09-09] MEDS ORDERED: METFORMIN HCL500 M1 PO (12:37)
[2021-09-09] MEDS ORDERED: LEVOCETIRIZINE D5 MG PO (12:38)
[2021-09-09] MEDS ORDERED: LISINOPRIL10 MG PO (12:40)
[2021-09-09] MEDS ORDERED: AMLODIPINE BESY10 MG PO (12:41)
[2021-09-09] MEDS ORDERED: EUTHYROX112 MCG PO (12:42)
[2021-09-09 13:28] LABS: CREATINE KINASE 178 IU/L (30-200)
[2021-09-09] MEDS: DOCUSATE SODIUM 100 MG CAP PO SCH ×2 (15:00→20:55)
[2021-09-09] MEDS: EZETIMIBE 10 MG TAB PO SCH (15:30)
[2021-09-09] MEDS: AMLODIPINE BESYLATE 10 MG TAB PO SCH (15:30)
[2021-09-09] MEDS: LEVOTHYROXINE SODIUM 112 MCG TAB PO SCH (15:30)
[2021-09-09] MEDS: LISINOPRIL 10 MG TAB PO SCH (15:30)
[2021-09-09] MEDS: INSULIN REGULAR, HUMAN 100 UNIT/1 ML SQ SCH ×2 (16:30→20:55)
[2021-09-09] MEDS: FAMOTIDINE 20 MG TAB PO SCH (17:00)
[2021-09-09] MEDS: POLYETHYLENE GLYCOL 3350 17 GM PACK PO SCH (17:01)
[2021-09-09] MEDS: METFORMIN HCL 500 MG TAB CR PO SCH (20:55)
[2021-09-10] VITALS (8 sets, daily range): BP systolic 101–139; BP diastolic 64–82
[2021-09-10] MEDS: ACETAMIN/BUTALBITAL/CAFFEINE TAB PO PRN (01:34)
[2021-09-10 05:35] LABS: BASOPHILS # (AUTO) 0.1 (0.0-0.1); BASOPHILS % 0.5 % (0.0-1.0); EOSINOPHILS # (AUTO) 0.2 (0.0-0.4); HEMATOCRIT 31.6 % (38.2-49.6); HEMOGLOBIN 10.3 g/dL (14.0-18.0); LYMPHOCYTES # (AUTO) 2.5 (1.0-3.2); MEAN CORPUSCULAR HEMOGLOBIN 26.9 pg (28-32); MEAN CORPUSCULAR HGB CONC 32.6 g/dL (31-35); MEAN CORPUSCULAR VOLUME 82.5 fL (81-99); MONOCYTES # (AUTO) 1.3 (0.2-0.8); MONOCYTES % 10.5 % (4.4-11.3); NEUTROPHILS # (AUTO) 7.9 (2.1-6.9); NEUTROPHILS % 65.8 % (38.7-80.0); PLATELET COUNT 215 x10e3/uL (140-360); RED BLOOD COUNT 3.83 x10e6/uL (4.3-5.7)
[2021-09-10 05:56] LABS: ALBUMIN 2.9 g/dL (3.5-5.0); ALBUMIN/GLOBULIN RATIO 0.7 (0.8-2.0); ANION GAP 11.1 mmol/L (8-16); CALCIUM 7.9 mg/dL (8.4-10.2); CHOL/HDL RATIO 5.1 (3.9-4.7); CREATINE KINASE 138 IU/L (30-200); CREATININE, SERUM 0.62 mg/dL (0.72-1.25); MAGNESIUM 1.4 MG/DL (1.3-2.1); PHOSPHORUS 2.3 MG/DL (2.3-4.7); POTASSIUM 4.1 mmol/L (3.5-5.1)
[2021-09-10] MEDS: LEVOTHYROXINE SODIUM 112 MCG TAB PO SCH (06:00)
[2021-09-10 06:20] LABS: THYROID STIMULATING HORMONE 1.52 uIU/mL (0.350-4.940)
[2021-09-10] MEDS: FAMOTIDINE 20 MG TAB PO SCH ×2 (07:30→16:30)
[2021-09-10] MEDS: INSULIN REGULAR, HUMAN 100 UNIT/1 ML SQ SCH ×4 (07:30→21:00)
[2021-09-10] MEDS ORDERED: SENNA-S TABLET PO ONE (09:30)
[2021-09-10] MEDS ORDERED: MAGNESIUM SULF 1GRAM/DEXTROSE 100 ML IV ONE (09:30)
[2021-09-10] MEDS: POLYETHYLENE GLYCOL 3350 17 GM PACK PO SCH ×2 (09:35→17:39)
[2021-09-10] MEDS: DOCUSATE SODIUM 100 MG CAP PO SCH ×3 (09:35→21:00)
[2021-09-10] MEDS: EZETIMIBE 10 MG TAB PO SCH (09:35)
[2021-09-10] MEDS: LORATADINE 10 MG TAB PO SCH (09:35)
[2021-09-10] MEDS: LISINOPRIL 10 MG TAB PO SCH (09:35)
[2021-09-10] MEDS: AMLODIPINE BESYLATE 10 MG TAB PO SCH (09:35)
[2021-09-10] MEDS ORDERED: MAGNESIUM SULFATE 2GM/50ML 50 ML IV ONE (10:30)
[2021-09-10] MEDS ORDERED: IOPAMIDOL 370 MG/ML 100 ML INFUS..BTL INJ ONE (11:03)
[2021-09-10] MEDS: SODIUM CHLORIDE 0.9% 1000ML 1,000 ML IV SCH ×3 (12:59→23:00)
[2021-09-10] MEDS ORDERED: BISACODYL 10 MG SUPP PR ONE (13:00)
[2021-09-10] MEDS ORDERED: ONDANSETRON HCL 4 MG ORAL DISINTEGRATING TAB PO PRN (18:30)
[2021-09-10] MEDS: METFORMIN HCL 500 MG TAB CR PO SCH (21:30)
[2021-09-10] MEDS: ACETAMINOPHEN 325 MG TAB PO PRN (23:04)
[2021-09-11] VITALS: BP 122/77
[2021-09-11 04:00] VITALS: BP 122/69
[2021-09-11 05:37] LABS: BASOPHILS # (AUTO) 0.1 (0.0-0.1); BASOPHILS % 1.1 % (0.0-1.0); EOSINOPHILS # (AUTO) 0.3 (0.0-0.4); EOSINOPHILS % 3.6 % (0.0-6.0); HEMATOCRIT 33.2 % (38.2-49.6); HEMOGLOBIN 10.7 g/dL (14.0-18.0); LYMPHOCYTES % 35.3 % (18.0-39.1); MEAN CORPUSCULAR HEMOGLOBIN 26.6 pg (28-32); MEAN CORPUSCULAR HGB CONC 32.2 g/dL (31-35); MEAN CORPUSCULAR VOLUME 82.6 fL (81-99); MONOCYTES % 12.2 % (4.4-11.3); NEUTROPHILS # (AUTO) 4.1 (2.1-6.9); NEUTROPHILS % 47.7 % (38.7-80.0); PLATELET COUNT 237 x10e3/uL (140-360); RED BLOOD COUNT 4.02 x10e6/uL (4.3-5.7); RED CELL DISTRIBUTION WIDTH 13.8 % (11.7-14.4)
[2021-09-11 06:07] LABS: ANION GAP 11.4 mmol/L (8-16); CALCIUM 8.2 mg/dL (8.4-10.2); CREATININE, SERUM 0.72 mg/dL (0.72-1.25); MAGNESIUM 1.8 MG/DL (1.3-2.1); POTASSIUM 4.4 mmol/L (3.5-5.1)
[2021-09-11] MEDS: LEVOTHYROXINE SODIUM 112 MCG TAB PO SCH (06:09)
[2021-09-11] MEDS: FAMOTIDINE 20 MG TAB PO SCH (06:09)
[2021-09-11] MEDS: SODIUM CHLORIDE 0.9% 1000ML 1,000 ML IV SCH (06:44)
[2021-09-11] MEDS: INSULIN REGULAR, HUMAN 100 UNIT/1 ML SQ SCH (07:30)
[2021-09-11 08:07] VITALS: BP 123/84
[2021-09-11] MEDS: POLYETHYLENE GLYCOL 3350 17 GM PACK PO SCH (08:31)
[2021-09-11] MEDS: DOCUSATE SODIUM 100 MG CAP PO SCH (08:31)
[2021-09-11] MEDS: LORATADINE 10 MG TAB PO SCH (08:31)
[2021-09-11] MEDS: AMLODIPINE BESYLATE 10 MG TAB PO SCH (08:32)
[2021-09-11] MEDS: EZETIMIBE 10 MG TAB PO SCH (08:32)
[2021-09-11] MEDS: LISINOPRIL 10 MG TAB PO SCH (08:32)
[2021-09-11] MEDS: ACETAMIN/BUTALBITAL/CAFFEINE TAB PO PRN (08:34)
[2021-09-11 09:37] VITALS: BP 123/84
[2021-09-11] MEDS ORDERED: FIORICET 50-301 EACH PO (10:56)
[2021-09-11] MEDS ORDERED: AUGMENTIN 500-1 EACH PO (10:56)
[2021-09-11 11:15] VITALS: BP 128/76
== END 2021-09-11 14:30 | disposition home or self-care (01) | DRG 872 ==
LOC: ER 18:57 → ERHOLD 23:04 → MED/SURG3 23:50
PROVIDERS: ADMIT Internal Medicine; ATTEND Internal Medicine
DX: A41.9 Sepsis, unspecified organism (principal); E87.2 Acidosis; R53.1 Weakness; I10 Essential (primary) hypertension; E11.9 Type 2 diabetes mellitus without complications; R65.20 Severe sepsis without septic shock; E78.5 Hyperlipidemia, unspecified; K21.9 Gastro-esophageal reflux disease without esophagitis; E03.9 Hypothyroidism, unspecified; M06.9 Rheumatoid arthritis, unspecified; K64.9 Unspecified hemorrhoids; H92.02 Otalgia, left ear; Z86.73 Personal history of transient ischemic attack (TIA), and cerebral infarction without residual deficits; Z87.440 Personal history of urinary (tract) infections; Z20.822 Contact with and (suspected) exposure to COVID-19; Z80.8 Family history of malignant neoplasm of other organs or systems; Z82.49 Family history of ischemic heart disease and other diseases of the circulatory system; Z79.82 Long term (current) use of aspirin; Z79.84 Long term (current) use of oral hypoglycemic drugs; R51.9 Headache, unspecified; Z79.1 Long term (current) use of non-steroidal anti-inflammatories (NSAID)
CPT/HCPCS: 36415; 70450; 70487; 71045; 74177; 80048; 80053; 80061; 81001; 82550; 82553; 82948; 83036; 83605; 83735; 83880; 84100; 84443; 84484; 85025; 87040; 93005; 93970; 94799; 99284; J0456; J0696; J1885; J2543; J3475; J7030; J7050; Q9967; U0002

== ENCOUNTER → 2022-06-06 | Outpatient (CLI) | payer MEDICARE, BC ==
[2022-05-30 14:29] LABS: BASOPHILS # (AUTO) 0.1 (0.0-0.1); EOSINOPHILS # (AUTO) 0.2 (0.0-0.4); EOSINOPHILS % 2.2 % (0.0-6.0); HEMATOCRIT 39.9 % (38.2-49.6); HEMOGLOBIN 12.1 g/dL (14.0-18.0); LYMPHOCYTES # (AUTO) 3.8 (1.0-3.2); LYMPHOCYTES % 34.5 % (18.0-39.1); MEAN CORPUSCULAR HGB CONC 30.3 g/dL (31-35); MEAN CORPUSCULAR VOLUME 85.8 fL (81-99); MONOCYTES % 9.1 % (4.4-11.3); NEUTROPHILS # (AUTO) 5.8 (2.1-6.9); NEUTROPHILS % 52.9 % (38.7-80.0); PLATELET COUNT 319 x10e3/uL (140-360); RED BLOOD COUNT 4.65 x10e6/uL (4.3-5.7); RED CELL DISTRIBUTION WIDTH 15.1 % (11.7-14.4)
[~2022-06-06] MED LIST changes: +AMLODIPINE BESY10 MG PO; +AUGMENTIN 500-1 EACH PO; +EUTHYROX112 MCG PO; +FIORICET 50-301 EACH PO; +GLIPIZIDE ER5 MG PO; +LEVOCETIRIZINE D5 MG PO; +LISINOPRIL10 MG PO; +METFORMIN HCL500 M1 PO; +ZETIA10 MG PO
== END ==
LOC: EDSTATUS 07:00 → RAD 08:00
PROVIDERS: ATTEND Internal Medicine Gastroenterology
DX: Z01.810 Encounter for preprocedural cardiovascular examination (principal); Z01.812 Encounter for preprocedural laboratory examination; Z12.11 Encounter for screening for malignant neoplasm of colon
CPT/HCPCS: 36415; 85025; 93005

== ENCOUNTER 2022-09-05 13:35 | Observation (INO) | payer MEDICARE, BC ==
[~2022-09-05] VITALS: Ht 327.7 cm; Wt 86.2 kg
[2022-09-05] MEDS ORDERED: SODIUM CHLORIDE 0.9% 1000ML 1,000 ML IV STA (14:21)
[2022-09-05 14:33] LABS: BASOPHILS # (AUTO) 0.1 (0.0-0.1); BASOPHILS % 0.7 % (0.0-1.0); EOSINOPHILS # (AUTO) 0.3 (0.0-0.4); EOSINOPHILS % 2.7 % (0.0-6.0); HEMATOCRIT 36.4 % (38.2-49.6); LYMPHOCYTES # (AUTO) 3.8 (1.0-3.2); LYMPHOCYTES % 36.6 % (18.0-39.1); MEAN CORPUSCULAR HEMOGLOBIN 26.3 pg (28-32); MEAN CORPUSCULAR VOLUME 79.8 fL (81-99); MONOCYTES # (AUTO) 0.7 (0.2-0.8); MONOCYTES % 6.7 % (4.4-11.3); NEUTROPHILS # (AUTO) 5.6 (2.1-6.9); NEUTROPHILS % 52.9 % (38.7-80.0); PLATELET COUNT 311 x10e3/uL (140-360); RED BLOOD COUNT 4.56 x10e6/uL (4.3-5.7); RED CELL DISTRIBUTION WIDTH 14.6 % (11.7-14.4)
[2022-09-05 14:48] LABS: INR 0.97; PROTHROMBIN TIME 13.4 seconds (11.9-14.5)
[2022-09-05 14:49] LABS: PARTIAL THROMBOPLASTIN TIME 34.9 seconds (23.8-35.5)
[2022-09-05 14:55] LABS: ALANINE AMINOTRANSFERASE 15 IU/L (0-55); ALBUMIN 3.4 g/dL (3.5-5.0); ALBUMIN/GLOBULIN RATIO 0.8 (0.8-2.0); ALKALINE PHOSPHATASE 79 IU/L (40-150); ANION GAP 14.6 mmol/L (8-16); BLOOD UREA NITROGEN 10 mg/dL (7-26); BUN/CREATININE RATIO 14 (6-25); CARBON DIOXIDE 21 mmol/L (22-29); CHLORIDE 105 mmol/L (98-107); CREATINE KINASE 139 IU/L (30-200); CREATININE, SERUM 0.71 mg/dL (0.72-1.25); GLUCOSE 157 mg/dL (74-118); POTASSIUM 3.6 mmol/L (3.5-5.1); SODIUM 137 mmol/L (136-145)
[2022-09-05] MEDS ORDERED: IOPAMIDOL 370 MG/ML 100 ML INFUS..BTL INJ ONE (15:06)
[2022-09-05 16:07] LABS: CLARITY,URINE CLEAR (CLEAR); COLOR,URINE YELLOW (YELLOW); KETONES,URINE NEGATIVE (NEGATIVE); LEUKOCYTE ESTERASE ,URINE NEGATIVE (NEGATIVE); NITRITE,URINE NEGATIVE (NEGATIVE); PROTEIN,URINE DIPSTICK NEGATIVE (NEGATIVE); URINE UROBILINOGEN 0.2 mg/dL (0.2 - 1)
[2022-09-05 16:15] LABS: BACTERIA,URINE FEW /HPF; EPITHELIAL CELLS,URINE FEW /LPF; RBC,URINE 0-5 /HPF (0-5); WBC,URINE (MAN) 0-5 /HPF (0-5)
[2022-09-05] MEDS ORDERED: ONDANSETRON HCL INJ 2MG/ML 2ML 2 MG/ML VIAL IV PRN (17:00)
[2022-09-05] MEDS: SODIUM CHLORIDE 0.9% 1000ML 1,000 ML IV SCH ×2 (21:45→21:47)
[2022-09-05 21:59] VITALS: BP 140/74
[2022-09-05 22:00] VITALS: BP_SYST 130; BP_SYST 140; BP_SYST 144; BP_DIAS 68; BP_DIAS 70; BP_DIAS 74
[2022-09-05 22:26] VITALS: BP 140/74
[2022-09-06 01:18] VITALS: BP 137/80
[2022-09-06] MEDS ORDERED: ACETAMINOPHEN 325 MG TAB PO PRN (02:15)
[2022-09-06 05:09] VITALS: BP 131/74
[2022-09-06] MEDS: SODIUM CHLORIDE 0.9% 1000ML 1,000 ML IV SCH ×2 (05:12→12:29)
[2022-09-06 05:18] LABS: CREATINE KINASE 111 IU/L (30-200)
[2022-09-06] MEDS ORDERED: LEVOTHYROXINE SODIUM 112 MCG TAB PO SCH (06:00)
[2022-09-06 06:37] LABS: BASOPHILS # (AUTO) 0.1 (0.0-0.1); BASOPHILS % 0.6 % (0.0-1.0); EOSINOPHILS # (AUTO) 0.3 (0.0-0.4); EOSINOPHILS % 3.2 % (0.0-6.0); HEMATOCRIT 34.2 % (38.2-49.6); HEMOGLOBIN 11.2 g/dL (14.0-18.0); LYMPHOCYTES # (AUTO) 3.5 (1.0-3.2); LYMPHOCYTES % 37.4 % (18.0-39.1); MEAN CORPUSCULAR HEMOGLOBIN 26.4 pg (28-32); MEAN CORPUSCULAR HGB CONC 32.7 g/dL (31-35); MEAN CORPUSCULAR VOLUME 80.5 fL (81-99); MONOCYTES # (AUTO) 0.7 (0.2-0.8); MONOCYTES % 7.6 % (4.4-11.3); NEUTROPHILS # (AUTO) 4.7 (2.1-6.9); PLATELET COUNT 294 x10e3/uL (140-360); RED BLOOD COUNT 4.25 x10e6/uL (4.3-5.7); RED CELL DISTRIBUTION WIDTH 14.6 % (11.7-14.4)
[2022-09-06 07:12] LABS: ALBUMIN 3.1 g/dL (3.5-5.0); ALBUMIN/GLOBULIN RATIO 0.8 (0.8-2.0); ANION GAP 11.9 mmol/L (8-16); CALCIUM 8.6 mg/dL (8.4-10.2); CREATININE, SERUM 0.63 mg/dL (0.72-1.25); POTASSIUM 3.9 mmol/L (3.5-5.1)
[2022-09-06 07:44] LABS: CREATINE KINASE 91 IU/L (30-200)
[2022-09-06 08:32] VITALS: BP 132/75
[2022-09-06 09:00] VITALS: BP 132/75
[2022-09-06] MEDS ORDERED: LORATADINE 10 MG TAB PO SCH (09:00)
[2022-09-06] MEDS ORDERED: LISINOPRIL 20 MG TAB PO SCH (09:00)
[2022-09-06] MEDS ORDERED: AMLODIPINE BESYLATE 10 MG TAB PO SCH (09:00)
[2022-09-06] MEDS ORDERED: EZETIMIBE 10 MG TAB PO SCH (09:00)
[2022-09-06 12:20] VITALS: BP 143/82
[2022-09-06 16:25] VITALS: BP 136/81
[2022-09-06] MEDS ORDERED: ONDANSETRON HCL 4 MG ORAL DISINTEGRATING TAB PO PRN (19:45)
[2022-09-07] MEDS ORDERED: METFORMIN HCL 500 MG TAB CR PO SCH (16:00)
== END 2022-09-06 19:41 | disposition home or self-care (01) ==
LOC: ER 13:52 → ERHOLD 16:50 → MED/SURG2 20:33
PROVIDERS: ADMIT Family Medicine; ATTEND Family Medicine
DX: H81.399 Other peripheral vertigo, unspecified ear (principal); I10 Essential (primary) hypertension; Z86.73 Personal history of transient ischemic attack (TIA), and cerebral infarction without residual deficits; E78.5 Hyperlipidemia, unspecified; U07.1 COVID-19; Z86.69 Personal history of other diseases of the nervous system and sense organs; E11.9 Type 2 diabetes mellitus without complications; E03.9 Hypothyroidism, unspecified; M06.9 Rheumatoid arthritis, unspecified; Z20.822 Contact with and (suspected) exposure to COVID-19; Z79.84 Long term (current) use of oral hypoglycemic drugs; Z79.899 Other long term (current) drug therapy; Z79.82 Long term (current) use of aspirin; Z68.30 Body mass index [BMI] 30.0-30.9, adult; Z87.440 Personal history of urinary (tract) infections; Z87.891 Personal history of nicotine dependence
CPT/HCPCS: 0223U; 36415; 70450; 70496; 70498; 70551; 71045 ×2; 80053 ×2; 81001; 82550 ×2; 82553 ×2; 82948 ×2; 83036; 84484 ×2; 85025 ×2; 85610; 85730; 93005 ×2; 93306; 94799; 95819; 99284; G0378 ×2; J7030 ×2; Q9967

== ENCOUNTER → 2024-11-23 | Outpatient (REF) | payer MEDICARE, BC ==
[~2024-11-23] MED LIST changes: +ATORVASTATIN CA20 MG PO; +CEFPODOXIME PR200 MG PO
[2024-11-23 11:25] LABS: BASOPHILS % 0.9 % (0.0-1.0); EOSINOPHILS % 2.1 % (0.0-6.0); LYMPHOCYTES % 26.0 % (18.0-39.1); MONOCYTES % 7.8 % (4.4-11.3); NEUTROPHILS % 62.9 % (38.7-80.0); RED CELL DISTRIBUTION WIDTH 15.1 % (11.7-14.4)
== END ==
LOC: RAD 12:00 → EDSTATUS 12-02 09:00
PROVIDERS: ATTEND Internal Medicine Gastroenterology
DX: Z01.810 Encounter for preprocedural cardiovascular examination (principal); Z01.812 Encounter for preprocedural laboratory examination; Z12.11 Encounter for screening for malignant neoplasm of colon; E11.9 Type 2 diabetes mellitus without complications; I10 Essential (primary) hypertension; Z86.0100 Personal history of colon polyps, unspecified; E05.90 Thyrotoxicosis, unspecified without thyrotoxic crisis or storm
CPT/HCPCS: 36415; 85025; 93005

== ENCOUNTER 2024-12-26 13:22 | Inpatient (IN) | payer MEDICARE, BC ==
[2024-12-26] VITALS (10 sets, daily range): BP systolic 133–145; BP diastolic 59–72; PULSE 63–80; RESP 16–18; TEMP 97.3–98.3; O2SAT 100
[~2024-12-26] VITALS: Ht 172.7 cm; Wt 74.8 kg
[2024-12-26] MEDS ORDERED: SODIUM CHLORIDE FLUSH 10 ML SYR IV PRN (14:00)
[2024-12-26 14:14] LABS: BASOPHILS % 0.5 % (0.0-1.0); EOSINOPHILS % 0.6 % (0.0-6.0); LYMPHOCYTES % 24.6 % (18.0-39.1); MONOCYTES % 7.8 % (4.4-11.3); NEUTROPHILS % 66.1 % (38.7-80.0); RED CELL DISTRIBUTION WIDTH 16.1 % (11.7-14.4)
[2024-12-26 14:28] LABS: EST GLOMERULAR FILTRATION RATE 95.0 ML/MIN (>=60)
[2024-12-26] MEDS ORDERED: SODIUM CHLORIDE FLUSH 10 ML SYR INJ PRN (16:45)
[2024-12-26] MEDS ORDERED: ONDANSETRON HCL INJ 2MG/ML 2ML 2 MG/ML VIAL IV PRN (16:45)
[2024-12-27] VITALS (12 sets, daily range): BP systolic 117–145; BP diastolic 57–85; PULSE 66–83; RESP 12–20; TEMP 97.3–98; O2SAT 94–100
[2024-12-27] MEDS ORDERED: HYDRALAZINE HCL 20 MG/ML VIAL IV PRN (01:30)
[2024-12-27] MEDS ORDERED: POLYETHYLENE GLYCOL 3350 17 GM PACK PO PRN (01:30)
[2024-12-27 06:05] LABS: LEUKOCYTE ESTERASE ,URINE LARGE (NEGATIVE); PROTEIN,URINE DIPSTICK 1+ (NEGATIVE); URINE UROBILINOGEN 0.2 mg/dL (0.2 - 1)
[2024-12-27 06:23] LABS: EPITHELIAL CELLS,URINE MODERATE /LPF; WBC,URINE (MAN) >50 /HPF (0-5)
[2024-12-27 06:58] LABS: BASOPHILS % 0.6 % (0.0-1.0); EOSINOPHILS % 1.1 % (0.0-6.0); LYMPHOCYTES % 24.3 % (18.0-39.1); MONOCYTES % 9.7 % (4.4-11.3); NEUTROPHILS % 64.1 % (38.7-80.0); RED CELL DISTRIBUTION WIDTH 16.2 % (11.7-14.4)
[2024-12-27 07:27] LABS: EST GLOMERULAR FILTRATION RATE 101.0 ML/MIN (>=60)
[2024-12-27 07:45] LABS: % IRON SATURATION 20.0 % (15-50)
[2024-12-27 07:48] LABS: CHOL/HDL RATIO 3.8 (3.9-4.7); LDL CHOLESTEROL 79.0 MG/DL (60-130); PHOSPHORUS 2.7 MG/DL (2.3-4.7)
[2024-12-27] MEDS: FAMOTIDINE 20 MG TAB PO SCH (08:28)
[2024-12-27] MEDS: DOCUSATE SODIUM 100 MG CAP PO SCH (08:28)
[2024-12-27] MEDS: IRON SUCROSE 100 MG in SODIUM CHLORIDE 0.9% 100 ML IV SCH (10:55)
[2024-12-27] MEDS: MAGNESIUM SULFATE 2GM/50ML 50 ML IV ONE ×2 (12:43→15:14)
[2024-12-27] MEDS: METFORMIN HCL 500 MG TAB CR PO SCH (18:51)
[2024-12-28] VITALS (12 sets, daily range): BP systolic 102–128; BP diastolic 59–98; PULSE 64–82; RESP 12–20; TEMP 97.3–98.3; O2SAT 96–98
[2024-12-28] MEDS: LEVOTHYROXINE SODIUM 112 MCG TAB PO SCH (05:12)
[2024-12-28 06:34] LABS: BASOPHILS % 0.4 % (0.0-1.0); EOSINOPHILS % 1.1 % (0.0-6.0); LYMPHOCYTES % 19.7 % (18.0-39.1); MONOCYTES % 12.0 % (4.4-11.3); NEUTROPHILS % 66.5 % (38.7-80.0); RED CELL DISTRIBUTION WIDTH 16.0 % (11.7-14.4)
[2024-12-28 07:05] LABS: EST GLOMERULAR FILTRATION RATE 97.0 ML/MIN (>=60)
[2024-12-28] MEDS: LISINOPRIL 20 MG TAB PO SCH (08:39)
[2024-12-28] MEDS: PANTOPRAZOLE SOD 40 MG TABEC PO SCH (08:39)
[2024-12-28] MEDS: CYANOCOBALAMIN INJ 1,000 MCG/ML VIAL IM SCH (08:39)
[2024-12-28] MEDS: ATORVASTATIN 40 MG TAB PO SCH (08:40)
[2024-12-28] MEDS: GLIPIZIDE 5 MG TAB ER PO SCH (08:40)
[2024-12-28] MEDS: AMLODIPINE BESYLATE 10 MG TAB PO SCH (08:41)
[2024-12-28] MEDS: ACETAMINOPHEN 325 MG TAB PO PRN (17:29)
[2024-12-29] VITALS (8 sets, daily range): BP systolic 108–133; BP diastolic 69–75; PULSE 62–84; RESP 16–20; TEMP 97.3–98.2; O2SAT 95–100
[2024-12-29] MEDS: CEFTRIAXONE 2 GM in SODIUM CHLORIDE 0.9% 100 ML IV SCH (14:46)
[2024-12-30] VITALS (11 sets, daily range): BP systolic 102–144; BP diastolic 62–77; PULSE 66–78; RESP 16–20; TEMP 97.8–98.6; O2SAT 96–98
[2024-12-30] MEDS: MUPIROCIN 2% OINT 22 GM TUBE TOP SCH (17:48)
[2024-12-31] VITALS (8 sets, daily range): BP systolic 109–145; BP diastolic 59–88; PULSE 64–85; RESP 16–20; TEMP 97.9–98.7; O2SAT 94–99
[2024-12-31 07:00] LABS: BASOPHILS % 0.5 % (0.0-1.0); EOSINOPHILS % 1.5 % (0.0-6.0); LYMPHOCYTES % 22.8 % (18.0-39.1); MONOCYTES % 14.7 % (4.4-11.3); NEUTROPHILS % 59.7 % (38.7-80.0); RED CELL DISTRIBUTION WIDTH 16.0 % (11.7-14.4)
[2024-12-31 07:32] LABS: EST GLOMERULAR FILTRATION RATE 102.0 ML/MIN (>=60)
[2024-12-31] MEDS ORDERED: ONDANSETRON HCL 4 MG ORAL DISINTEGRATING TAB PO PRN (17:15)
== END 2024-12-31 18:05 | disposition home or self-care (01) | DRG 313 ==
LOC: ER 13:46 → ERHOLD 16:35 → MED/SURG3 17:48 → OBSVTOIN 12-28 02:15
PROVIDERS: ADMIT Internal Medicine; ATTEND Internal Medicine
PROC: 05HY33Z Insertion of Infusion Device into Upper Vein, Percutaneous Approach (ICD-10-PCS; principal; 2024-12-30)
DX: R07.89 Other chest pain (principal); N39.0 Urinary tract infection, site not specified; G45.9 Transient cerebral ischemic attack, unspecified; Z16.12 Extended spectrum beta lactamase (ESBL) resistance; Z16.24 Resistance to multiple antibiotics; M19.012 Primary osteoarthritis, left shoulder; M06.9 Rheumatoid arthritis, unspecified; I10 Essential (primary) hypertension; E78.5 Hyperlipidemia, unspecified; K21.9 Gastro-esophageal reflux disease without esophagitis; E03.9 Hypothyroidism, unspecified; N40.1 Benign prostatic hyperplasia with lower urinary tract symptoms; I49.8 Other specified cardiac arrhythmias; D72.829 Elevated white blood cell count, unspecified; R30.0 Dysuria; R35.0 Frequency of micturition; E11.65 Type 2 diabetes mellitus with hyperglycemia; R07.2 Precordial pain; E83.42 Hypomagnesemia; D51.3 Other dietary vitamin B12 deficiency anemia; D50.9 Iron deficiency anemia, unspecified; J44.9 Chronic obstructive pulmonary disease, unspecified; R53.1 Weakness; T50.995A Adverse effect of other drugs, medicaments and biological substances, initial encounter; B96.20 Unspecified Escherichia coli [E. coli] as the cause of diseases classified elsewhere; Z87.891 Personal history of nicotine dependence; Z79.890 Hormone replacement therapy; Z79.84 Long term (current) use of oral hypoglycemic drugs; Z87.440 Personal history of urinary (tract) infections; Y92.009 Unspecified place in unspecified non-institutional (private) residence as the place of occurrence of the external cause
CPT/HCPCS: 36415; 36569; 71045; 71046; 80048; 80053; 80061; 81001; 82550; 82607; 82728; 82746; 82948; 83036; 83540; 83735; 83880; 84100; 84439; 84443; 84466; 84484; 85025; 85045; 87086; 87186; 93005; 93306; 94760; 94799; 99284; G0378; J0696; J1335; J1756; J2185; J2470; J3420; J3475; J7050

== ENCOUNTER 2025-01-01 19:32 | Observation (INO) | payer MEDICARE, BC ==
[~2025-01-01] VITALS: Ht 172.7 cm; Wt 74.8 kg
[2025-01-01 20:13] VITALS: TEMP 98.3
[2025-01-01] MEDS ORDERED: ALTEPLASE RECOMBINANT 2 MG/2 ML VIAL ONE (20:33)
[2025-01-01] MEDS ORDERED: DEXTROSE 50% SYRINGE 50 ML IV PRN (20:45)
[2025-01-01] MEDS ORDERED: ONDANSETRON HCL INJ 2MG/ML 2ML 2 MG/ML VIAL IV PRN (20:45)
[2025-01-01] MEDS: ALTEPLASE RECOMBINANT 2 MG/2 ML VIAL IV ONE (20:53)
[2025-01-01] MEDS: WATER STERILE 10 ML VIAL IV ONE (20:53)
[2025-01-01 20:54] LABS: BASOPHILS % 0.5 % (0.0-1.0); EOSINOPHILS % 1.4 % (0.0-6.0); LYMPHOCYTES % 28.1 % (18.0-39.1); MONOCYTES % 14.9 % (4.4-11.3); NEUTROPHILS % 53.9 % (38.7-80.0); RED CELL DISTRIBUTION WIDTH 16.0 % (11.7-14.4)
[2025-01-01 21:00] VITALS: PULSE 81; RESP 18; O2SAT 100
[2025-01-01] MEDS: INSULIN REGULAR, HUMAN 100 UNIT/1 ML SQ SCH (21:00)
[2025-01-01 21:05] VITALS: PULSE 83; RESP 18
[2025-01-01 21:07] LABS: EST GLOMERULAR FILTRATION RATE 96.0 ML/MIN (>=60)
[2025-01-01] MEDS: Vancomycin IV 1 GM in SODIUM CHLORIDE 0.9% 250ML 250 ML IV ONE (21:42)
[2025-01-01 23:00] VITALS: BP 111/59; PULSE 75; RESP 18; TEMP 98.3
[2025-01-02] VITALS (8 sets, daily range): BP systolic 106–146; BP diastolic 65–80; PULSE 60–74; RESP 16–20; TEMP 97.7–98.6; O2SAT 95–100
[2025-01-02 05:38] LABS: BASOPHILS % 0.4 % (0.0-1.0); EOSINOPHILS % 1.8 % (0.0-6.0); LYMPHOCYTES % 27.9 % (18.0-39.1); MONOCYTES % 14.8 % (4.4-11.3); NEUTROPHILS % 54.1 % (38.7-80.0); RED CELL DISTRIBUTION WIDTH 15.9 % (11.7-14.4)
[2025-01-02 06:01] LABS: EST GLOMERULAR FILTRATION RATE 103.0 ML/MIN (>=60)
[2025-01-02] MEDS: Vancomycin IV 1 GM in SODIUM CHLORIDE 0.9% 250ML 250 ML IV SCH (08:50)
[2025-01-02] MEDS: METFORMIN HCL 500 MG TAB CR PO SCH (16:46)
[2025-01-02] MEDS: ACETAMINOPHEN 325 MG TAB PO PRN (21:15)
[2025-01-03 06:17] VITALS: BP 128/73; PULSE 62; RESP 18; TEMP 96.8; O2SAT 98
[2025-01-03] MEDS: LEVOTHYROXINE SODIUM 112 MCG TAB PO SCH (06:17)
[2025-01-03 06:39] LABS: BASOPHILS % 0.4 % (0.0-1.0); EOSINOPHILS % 1.9 % (0.0-6.0); LYMPHOCYTES % 25.2 % (18.0-39.1); MONOCYTES % 12.3 % (4.4-11.3); NEUTROPHILS % 59.3 % (38.7-80.0); RED CELL DISTRIBUTION WIDTH 15.8 % (11.7-14.4)
[2025-01-03 07:23] LABS: EST GLOMERULAR FILTRATION RATE 103.0 ML/MIN (>=60)
[2025-01-03] MEDS: SODIUM CHLORIDE 0.9% 250ML 250 ML ONE (08:19)
[2025-01-03] MEDS: GLIPIZIDE 5 MG TAB ER PO SCH (08:20)
[2025-01-03] MEDS: LISINOPRIL 20 MG TAB PO SCH (08:20)
[2025-01-03] MEDS: ATORVASTATIN 40 MG TAB PO SCH (08:20)
[2025-01-03] MEDS: AMLODIPINE BESYLATE 10 MG TAB PO SCH (08:21)
[2025-01-03 08:33] VITALS: BP 113/66; PULSE 80; RESP 17; TEMP 98.5; O2SAT 100
[2025-01-03 08:34] VITALS: BP 113/66; PULSE 80; RESP 17; TEMP 98.5; O2SAT 100
[2025-01-03 11:32] VITALS: BP 142/75; PULSE 64; RESP 17; TEMP 98.3; O2SAT 98
[2025-01-03 16:10] VITALS: BP 115/75; PULSE 71; RESP 18; TEMP 98.1; O2SAT 99
== END 2025-01-03 17:11 ==
LOC: ER 19:41 → ERHOLD 20:35 → MED/SURG 21:39
PROVIDERS: ADMIT Internal Medicine; ATTEND Internal Medicine
DX: I80.8 Phlebitis and thrombophlebitis of other sites (principal); N39.0 Urinary tract infection, site not specified; B96.20 Unspecified Escherichia coli [E. coli] as the cause of diseases classified elsewhere; B96.89 Other specified bacterial agents as the cause of diseases classified elsewhere; Z16.12 Extended spectrum beta lactamase (ESBL) resistance; I10 Essential (primary) hypertension; Z79.84 Long term (current) use of oral hypoglycemic drugs; E03.9 Hypothyroidism, unspecified; E78.5 Hyperlipidemia, unspecified; Z86.73 Personal history of transient ischemic attack (TIA), and cerebral infarction without residual deficits; K21.9 Gastro-esophageal reflux disease without esophagitis; Z87.891 Personal history of nicotine dependence
CPT/HCPCS: 36415 ×3; 71045; 80048; 80053 ×2; 80202; 82948 ×2; 85025 ×3; 87040; 94799 ×2; 99252; 99284; G0378 ×3; J1335 ×2; J2997; J3373 ×3; J7050 ×3